=== PATIENT | female | born 1995 | race African-American/Black ===

== ENCOUNTER 2020-08-16 04:54 | Day surgery (SDC) | payer OTHER ==
[2020-08-15 09:27] VITALS: BMI 30.6
[2020-08-16] MEDS ORDERED: PROPOFOL 20 ML ONE ×3 (11:55→12:49)
[2020-08-16] MEDS ORDERED: ONDANSETRON 4 MG/2 ML VIAL IVPUSH PRN (13:27)
[2020-08-16] MEDS ORDERED: ACETAMINOPHEN 1000 MG/100 ML VIAL (NON FORMULARY) IVPB PRN (13:27)
[2020-08-16] MEDS ORDERED: LACTATED RINGERS SOLUTION 1,000 ML IV SCH (13:30)
[2020-08-16] MEDS ORDERED: ACETAMINOPHEN INJECTION 100 ML IVPB ONE (14:32)
[2020-08-16] MEDS ORDERED: INDOMETHACIN 50 MG CAPSULE PO ONE (14:38)
[2020-08-16 17:45] VITALS: BP 106/60
[2020-08-16 17:50] VITALS: PULSE 86; TEMP 98.4
== END 2020-08-16 18:00 | disposition home or self-care (01) ==
LOC: JASU-SURG 04:54
PROVIDERS: ATTEND Obstetrics & Gynecology Maternal & Fetal Medicine
PROC: 0UVC7ZZ Restriction of Cervix, Via Natural or Artificial Opening (ICD-10-PCS; principal; 2020-08-16 12:00)
DX: O34.31 Maternal care for cervical incompetence, first trimester (principal); Z3A.11 11 weeks gestation of pregnancy
CPT/HCPCS: 94760; J0131